=== PATIENT | female | born 1995 | race Caucasian/White ===

== ENCOUNTER 2018-11-28 15:31 | Emergency (ER) | payer OTHER ==
--- NOTE | 2018-11-28 15:57 | EDPHY ---
H & P Stated Complaint: MIDSTERNAL CP SINCE JUNE SAW PCP YESTERDAY ABNL EKG Time Seen by Provider: 11/28/18 15:56 - Personal History LMP (Females 10-55): 15-21 Days Ago Current Tetanus Diphtheria and Acellular Pertussis (TDAP): Yes - Medical/Surgical History Hx Asthma: No Hx Chronic Respiratory Disease: No Hx Diabetes: No Hx Cardiac Disease: No Hx Renal Disease: No Hx Cirrhosis: No Hx Alcoholism: No Hx HIV/AIDS: No Hx Splenectomy or Spleen Trauma: No Other PMH: DENIES - Social History Smoking Status: Never smoked Constitutional: Initial Vital Signs Temperature (C) 37.3 C 11/28/18 15:36 Heart Rate 90 11/28/18 15:36 Respiratory Rate 18 11/28/18 15:36 Blood Pressure 144/93 H 11/28/18 15:36 O2 Sat (%) 99 11/28/18 15:36 O2 Delivery Mode Room Air Allergies/Adverse Reactions: No Known Allergies Allergy (Unverified 11/28/18 15:36) Home Medications: Medication Instructions Recorded Aviane-28 Tablet 11/28/18 Clonidine 11/28/18 Medical Decision Making ED Course/Re-evaluation: CHIEF COMPLAINT: HISTORY OF PRESENT ILLNESS: must have 4 elements: Location, Quality, Severity , Duration, Timing, Context, Modifying Factors, Associated Signs and Symptoms No fever, headache, body aches, lightheadedness, chest pain, heart palpitations , shortness of breath, cough, abdominal pain, urinary or bowel complaints, numbness, paresthesias. REVIEW OF SYSTEMS: A 10 point review of systems was performed and is negative with the exception of the elements mentioned in the history of present illness. PHYSICAL EXAM: HR, BP, O2 Sat, RR. Temp noted General Appearance: Alert, well hydrated, appropriate, and non-toxic appearing. Head: Atraumatic without scalp tenderness or obvious injury Eyes: Pupils equal, round, reactive to light and accommodation, EOMI, no trauma , no injection. Ears: Clear bilaterally, no perforation, normal landmarks Nose: Atraumatic, no rhinorrhea, clear. Throat: There is no erythema or exudates, no lesions, normal tonsils, mucus membranes moist. Neck: Supple, 2+ carotid upstroke, nontender, no lymphadenopathy. Respiratory: No retractions, no distress, no wheezes, and no accessory muscle use. Lungs are clear to auscultation bilaterally. Cardiovascular: Regular rate and rhythm, no murmurs, rubs, or gallops. Bilateral carotid, radial, dorsalis pedis, and posterior tibial pulses intact. Good capillary refill all extremities. Gastrointestinal: Abdomen is soft, nontender, non-distended, no masses, no rebound, no guarding, no peritoneal signs. Musculoskeletal: Normal active ROM of all extremities, atraumatic. Neurological: Alert, appropriate, and interactive. The patient has normal DTRs and non-focal cranial nerves, motor, sensory, and cerebellar exam. Skin: No rashes, good turgor, no nodules on palpation. Past medical history: Past surgical history: Family history: Social history: DIAGNOSTICS/PROCEDURES/CRITICAL CARE TIME: DIFFERENTIAL DIAGNOSIS: MEDICAL DECISION MAKING: Departure - Departure Referrals: Edgar Barr PA [Primary Care Provider] - As per Instructions
--- NOTE | 2018-11-28 16:02 | EDPHY ---
H & P Stated Complaint: MIDSTERNAL CP SINCE JUNE SAW PCP YESTERDAY ABNL EKG Time Seen by Provider: 11/28/18 15:56 HPI/ROS: Chief complaint: Chest pain History of present illness: 23-year-old female presents to the emergency department for chest pain. Patient has had right-sided chest pain for number of months. She has seen her primary care doctor for this previously. She had an EKG today that showed changes in T-waves in leads V2 and V3 which was different from an EKG 1 month ago. EKG was reviewed by Cardiology who recommended she come to the emergency room. Patient's pain does wax and wane. Again however has been there for a number of months. She denies cough, she denies shortness of breath, she denies pain or swelling in the legs, no fever cold symptoms. She did have a chest x-ray today, one view chest with right rib series as her pain is on the right which was negative. This was performed health [facility]. Review of systems: A 10 point review of systems was obtained and other than described above was negative. - Personal History LMP (Females 10-55): 15-21 Days Ago Current Tetanus Diphtheria and Acellular Pertussis (TDAP): Yes - Medical/Surgical History Hx Asthma: No Hx Chronic Respiratory Disease: No Hx Diabetes: No Hx Cardiac Disease: No Hx Renal Disease: No Hx Cirrhosis: No Hx Alcoholism: No Hx HIV/AIDS: No Hx Splenectomy or Spleen Trauma: No Other PMH: DENIES - Social History Smoking Status: Never smoked - Physical Exam Exam: General Appearance: Alert, nontoxic. Eyes: Pupils equal and round no pallor or injection. ENT, Mouth: Mucous membranes moist. Respiratory: There are no retractions, lungs are clear to auscultation. Cardiovascular: Regular rate and rhythm. Gastrointestinal: Abdomen is soft and non tender, no masses, bowel sounds normal. Neurological: Alert and oriented x4. Strength and sensation intact and symmetrical. Skin: Warm and dry, no rashes. Musculoskeletal: There is chest wall tenderness over the right, superior costosternal joints. No crepitus or subcutaneous air. Psychiatric: Patient is oriented X 3, there is no agitation. Constitutional: Initial Vital Signs Temperature (C) 37.3 C 11/28/18 15:36 Heart Rate 90 11/28/18 15:36 Respiratory Rate 18 11/28/18 15:36 Blood Pressure 144/93 H 11/28/18 15:36 O2 Sat (%) 99 11/28/18 15:36 O2 Delivery Mode Room Air Allergies/Adverse Reactions: No Known Allergies Allergy (Unverified 11/28/18 15:36) Home Medications: Medication Instructions Recorded Aviane-28 Tablet 11/28/18 Clonidine 11/28/18 Medical Decision Making ED Course/Re-evaluation: Patient is discussed with my secondary supervising physician Dr. Sourav Manzano. Patient presents for right-sided chest pain. Pain is reproducible. She had a chest x-ray today at [facility] which was normal. EKG here is normal, T- waves in V2 and V3 are normal. D-dimer, troponin and blood studies are unremarkable. Given the pain is reproducible and has been going on for months I feel she is safe for discharge home. She is to follow up with her primary care doctor for recheck. Return precautions are given. Differential Diagnosis: Included but not limited to musculoskeletal pain, pneumothorax, pulmonary infections, PE, cardiac dysrhythmia, doubtful ACS - Data Points Laboratory Results: Laboratory Results 11/28/18 16:00 11/28/18 16:00 Point of Care Test Results: Chemistry 11/28/18 16:05 POC Troponin I 0.00 ng/mL ng/mL (0.00-0.08) Departure - Departure Disposition: Home, Routine, Self-Care Clinical Impression: Chest wall pain Condition: Good Instructions: Chest Pain (ED) Additional Instructions: Follow-up with your primary care doctor next week for continued evaluation and care If symptoms worsen or new symptoms develop return to the emergency room for recheck Referrals: Edgar Barr PA [Primary Care Provider] - As per Instructions
[2018-11-28 16:31] LABS: PLATELET COUNT 340 10^3/uL (150-400)
[2018-11-28 17:00] VITALS: BP 122/73
--- NOTE | 2018-11-28 20:02 | CPEKG ---
Test Reason : OPEN Blood Pressure : / mmHG Vent. Rate : 063 BPM Atrial Rate : 063 BPM P-R Int : 124 ms QRS Dur : 094 ms QT Int : 423 ms P-R-T Axes : 036 076 041 degrees QTc Int : 434 ms Sinus rhythm Confirmed by Sourav Manzano ([id number]) on 11/28/2018 8:02:20 PM Referred By: Sourav Manzano Confirmed By:Sourav Manzano
== END 2018-11-28 17:00 | disposition home or self-care (01) ==
DX: R07.89 Other chest pain (principal)
CPT/HCPCS: 84484-ER